=== PATIENT | female | born 1945 | race Caucasian/White ===

== ENCOUNTER → 2022-03-20 | Day surgery (SDC) | payer MEDICARE, OTHER ==
[~2022-03-20] VITALS: Ht 162.6 cm; Wt 89.1 kg
[~2022-03-20] MED LIST: ALLERGY RELIEF10 MG PO; FIBER500 MG PO; FISH OIL 1,0001 EAC4 PO; LACTINEX1 EACH PO; LIPITOR40 MG PO; LISINOPRIL-HCT1 EAC1 PO; NEURONTIN300 MG PO; NORCO 5-325 TA1 EACH PO; ONDANSETRON ODT8 MG PO; PRILOSEC20 MG PO; RECTICARE30 GM TOP; VANCOCIN HCL125 MG PO; VITAMIN D-40400 UNIT PO; VITAMIN E200 UNI1 PO; XARELTO10 MG PO; ZOFRAN4 MG PO
[2022-03-20 09:50] LABS: HCT 41.7 % (37.0-47.0); HGB 13.2 g/dl (12.5-16.0); MCH 28.1 pg (25.0-31.0); MCHC 31.7 g/dL (32.0-36.0); MCV 88.7 fL (78.0-100.0); MPV 11.8 fL (6.0-9.5); RBC 4.7 M/uL (4.20-5.40); RDW 14.3 % (11.5-14.0); WBC 3.9 K/uL (4.0-10.5)
[2022-03-20 10:46] LABS: ALBUMIN 3.6 g/dL (3.4-5.0); BILIRUBIN - TOTAL 1.1 mg/dL (0.2-1.0); CREATININE 1.13 mg/dL (0.51-0.95); GLOBULIN (CALCULATION) 3.7 g/dL; TOTAL PROTEIN 7.3 g/dL (6.4-8.2)
== END | disposition home or self-care (01) ==
LOC: FAS 02-27 10:30
PROVIDERS: Surgery
DX: K64.3 Fourth degree hemorrhoids (principal); E78.5 Hyperlipidemia, unspecified; I10 Essential (primary) hypertension; Z87.891 Personal history of nicotine dependence; Z88.0 Allergy status to penicillin; Z88.8 Allergy status to other drugs, medicaments and biological substances
CPT/HCPCS: 36415; 80053; 93005; J1100; J1885; J2250; J2405; J2704; J3010; J7120

== ENCOUNTER 2022-03-26 19:44 | Emergency (ER) | payer MEDICARE, OTHER ==
[2022-03-26 21:34] LABS: BILIRUBIN NEGATIVE (NEGATIVE); BLOOD 2+ Ery/uL (NEGATIVE); CLARITY CLEAR (CLEAR); COLOR YELLOW (YELLOW); GLUCOSE (U) NORMAL (NORMAL); LEUKOCYTES 2+ Leu/uL (NEGATIVE); NITRITE POSITIVE (NEGATIVE); PROTEIN TRACE (LOW) mg/dL (NEGATIVE); SPECIFIC GRAVITY 1.015 (1.001-1.030); UROBILINOGEN 0.2 mg/dL (0.2-1.0)
[2022-03-26 21:38] LABS: BASOPHIL 0.4 % (0-2); EOSINOPHIL 0.4 % (0-7); HCT 38.7 % (37.0-47.0); HGB 12.4 g/dl (12.5-16.0); LYMPHOCYTE 9.2 % (15-48); MCV 87.4 fL (78.0-100.0); MONOCYTE 8.8 % (0-12); MPV 11.2 fL (6.0-9.5); NEUTROPHIL 80.7 % (41-80); NRBC 0; PLT 175 K/uL (150-400); RBC 4.43 M/uL (4.20-5.40); RDW 14.1 % (11.5-14.0); WBC 8.1 K/uL (4.0-10.5)
[2022-03-26 21:40] LABS: BACTERIA 4+; URINARY WBC 20-50
[2022-03-26 21:41] LABS: SQUAMOUS EPITHELIAL CELLS RARE
[2022-03-26 21:55] LABS: INR 1.05 (0.9-1.2); PROTHROMBIN TIME 13.1 SECONDS (11.8-13.4)
[2022-03-26 22:04] LABS: ALBUMIN 3.7 g/dL (3.4-5.0); BILIRUBIN - TOTAL 1.8 mg/dL (0.2-1.0); BUN/CREAT RATIO (CALC) 15.2 RATIO; CREATININE 1.25 mg/dL (0.51-0.95); GLOBULIN (CALCULATION) 3.9 g/dL; POTASSIUM 3.6 mmol/L (3.5-5.1); TOTAL PROTEIN 7.6 g/dL (6.4-8.2)
[2022-03-26 22:13] LABS: CORONAVIRUS 2019 SARS-COV-2 NEGATIVE (NEGATIVE); INFLUENZA A NAA NEGATIVE (NEGATIVE)
[2022-03-26 23:14] LABS: LACTIC ACID 0.9 mmol/L (0.4-1.9)
[2022-03-27] MEDS ORDERED: BACTRIM DS TAB1 EACH PO (00:33)
== END 2022-03-27 01:04 | disposition home or self-care (01) ==
LOC: FER 19:44
PROVIDERS: Physician Assistant
DX: N30.00 Acute cystitis without hematuria (principal); Z20.822 Contact with and (suspected) exposure to COVID-19; Z88.0 Allergy status to penicillin; Z88.8 Allergy status to other drugs, medicaments and biological substances
CPT/HCPCS: 36415; 71045; 80053; 81001; 83605; 85025; 85610; J0696; J7040; U0002